=== PATIENT | male | born 1950 | race Hispanic/Latino ===

== ENCOUNTER 2023-02-20 22:23 | Emergency (ER) | payer OTHER ==
--- OUTSIDE RECORDS SUMMARY | 2023-02-20 22:27 | XMS REPORT | Continuity of Care Document ---
:1950 Author Organization [facility] t Address [address] [place] [address] Care Team Providers Name Role Phone Paul Grey MD Primary Care Physician Aquino_B Attending Clinician Unavailable Aquino_B Admitting Clinician Unavailable Payers Payer Name Policy Type Policy Number Effective Date Expiration Date [facility] [place]: [id number] 2018 [place] 00:00:00 [id number] (MEDICARE 00:00:00 SUPPLEMENT) [facility] [id number] 2018 2019 00:00:00 00:00:00 Problems Condition Condition Condition Status Onset Resolution Last Treating Co mments Source Name Details Category Date Date Treatment Clinician Date 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 Diabetes 4-11 Family mellitus Mellitus 00:00: Practi c 00 e Peripheral Peripheral Problem Active 2020-10 [facility] vascular Vascular 0-21 Family disease Disease 00:00: Practic 00 e Congestive Congestive Problem Active [facility] heart Heart 5-10 Family failure Failure 00:00: Practic 00 e 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 Social History Social Habit Start Date Stop Date Quantity Comments Source Gender identity [facility] Sexual orientation [facility] History of Social 2018-08-27 2018-08-[address] function 00:00:00 00:00:00 Hospital Alcohol intake 2017-11-21 2017-11-21 Current [facility] 00:[facility]:00 00:00:00 non-drinker of Hospital alcohol (finding) Tobacco use and 2017-09-12 2017-09-12 Sm[facility]eless [facility] 00:[facility]:00 00:00:00 tobacco non-user Hospital Sex Assigned At [birth year] [facility] 00[facility] Smoking Status Start Date Stop Date Source Never Smoker [facility] Medications Ordered Filled Start Stop Current Ordering Indication Dosage Frequency Signature Comments Components Source Medication Medication Date Date Medication? Clinician (SIG) Name Name amLODIPine Yes 10mg QD Take 10 mg M ethodi (NORVASC) 1-[address] 10 mg 00:00: daily. Hospita tablet 00 l BASAGLAR 2016-10 Yes 25U QD Inject 25 Meth marya KWIKPEN 100 0-[address] unit/mL (3 00:00: under the Ho spita mL) 00 skin l injection nightly. (pen) lisinopril 2016-10 Yes 40mg QD Take 40 mg M ethodi (PRINIVIL,Z 0-[address] ESTRIL) 40 00:00: every Hospit a mg tablet 00 morning. l simvastatin 2016-10 Yes 20mg QD Take 20 mg Methodi (ZOCOR) 20 0-[address] MG tablet 00:00: nightly. Hosp david 00 l metFORMIN Yes 500mg Q.5D Take 500 Met hodi XR 9-[address] (GLUCOPHAGE 00:00: mouth 2 Hos rasheed -XR) 500 mg 00 (two) l 24 hr times a tablet day with meals. amlodipine amlodipine No amlodipine [facility] 10 mg 10 mg 10 mg Family tablet TAKE tablet TAKE tablet Practic 1 TABLET BY 1 TABLET BY TAKE 1 e MOUTH EVERY MOUTH EVERY TABLET BY DAY- NEEDS DAY- NEEDS MOUTH APPT APPT EVERY DAY- NEEDS APPT Basaglar Basaglar No Basaglar Aquilino gilmore KwikPen KwikPen KwikJob Family U-100 U-100 U-100 Practic Insulin 100 Insulin 100 Insulin e unit/mL (3 unit/mL (3 100 mL) mL) unit/mL (3 subcutaneou subcutaneou mL) s INJECT 30 s INJECT 30 subcutaneo UNITS UNITS us INJECT SUBCUTANEOU SUBCUTANEOU 30 UNITS SLY ONCE SLY ONCE SUBCUTANEO DAILY DAILY USLY ONCE DAILY BD BD No BD [facility] Ultra-Fine Ultra-Fine Ultra-Fine Family Short Pen Short Pen Short Pen Practic Needle 31 Needle 31 Needle 31 e gauge x gauge x gauge x 02/23" BID 02/23" BID 02/23" BID use use use Ecotrin Low Ecotrin Low No 1 Q1D Ecotrin [facility] Strength 81 Strength 81 Low F amily mg mg Strength Practic tablet,ente tablet,ente 81 mg e chris coated chris coated tablet,ent Take 1 Take 1 jana tablet tablet coated every day every day Take 1 by oral by oral tablet route. route. every day by oral route. hydrochloro hydrochloro No 1 Q1D hydrochlor [facility] thiazide 25 thiazide 25 othiazide Family mg tablet mg tablet 25 mg Prac tic Take 1 Take 1 tablet e tablet tablet Take 1 every day every day tablet by oral by oral every day route in route in by oral the the route in morning. morning. the morning. lisinopril lisinopril No lisinopril [facility] 40 mg 40 mg 40 mg Family tablet TAKE tablet TAKE tablet Practic 1 TABLET BY 1 TABLET BY TAKE 1 e MOUTH EVERY MOUTH EVERY TABLET BY DAY DAY MOUTH EVERY DAY metformin metformin No metformin [facility] 500 mg 500 mg 500 mg Family tablet TAKE tablet TAKE tablet Practic 1 TABLET BY 1 TABLET BY TAKE 1 e MOUTH TWICE MOUTH TWICE TABLET BY A DAY A DAY MOUTH TWICE A DAY naproxen naproxen No naproxen Aquilino gilmore 500 mg 500 mg 500 mg Family tablet tablet tablet Practic e simvastatin simvastatin No simvastati [facility] 20 mg 20 mg n 20 mg Family tablet TAKE tablet TAKE tablet Practic 1 TABLET BY 1 TABLET BY TAKE 1 e MOUTH EVERY MOUTH EVERY TABLET BY DAY IN THE DAY IN THE MOUTH EVENING EVENING EVERY DAY IN THE EVENING amlodipine amlodipine No amlodipine [facility] 10 mg 10 mg 10 mg Family tablet TAKE tablet TAKE tablet Practic 1 TABLET BY 1 TABLET BY TAKE 1 e MOUTH EVERY MOUTH EVERY TABLET BY DAY- NEEDS DAY- NEEDS MOUTH APPT APPT EVERY DAY- NEEDS APPT Caneloshiraroseanne Lemosaglroseanne No Basaglar Aquilino gilmore KwikPen KwikPen KwikJob Family U-100 U-100 U-100 Practic Insulin 100 Insulin 100 Insulin e unit/mL (3 unit/mL (3 100 mL) mL) unit/mL (3 subcutaneou subcutaneou mL) s INJECT 30 s INJECT 30 subcutaneo UNITS UNITS us INJECT SUBCUTANEOU SUBCUTANEOU 30 UNITS SLY ONCE SLY ONCE SUBCUTANEO DAILY DAILY USLY ONCE DAILY BD BD No BD [facility] Ultra-Fine Ultra-Fine Ultra-Fine Family Short Pen Short Pen Short Pen Practic Needle 31 Needle 31 Needle 31 e gauge x gauge x gauge x 5/16" USE 02/23" USE 02/23" USE DIRECTED DIRECTED DIRECTED Ecotrin Low Ecotrin Low No 1 Q1D Ecotrin [facility] Strength 81 Strength 81 Low F amily mg mg Strength Practic tablet,ente tablet,ente 81 mg e chris coated chris coated tablet,ent Take 1 Take 1 jana tablet tablet coated every day every day Take 1 by oral by oral tablet route. route. every day by oral route. hydrochloro hydrochloro No hydrochlor [facility] thiazide 25 thiazide 25 othiazide Family mg tablet mg tablet 25 mg Prac tic TAKE 1 TAKE 1 tablet e TABLET TABLET TAKE 1 EVERY DAY EVERY DAY TABLET BY ORAL BY ORAL EVERY DAY ROUTE IN ROUTE IN BY ORAL THE THE ROUTE IN MORNING. MORNING. THE MORNING. lisinopril lisinopril No lisinopril [facility] 40 mg 40 mg 40 mg Family tablet TAKE tablet TAKE tablet Practic 1 TABLET BY 1 TABLET BY TAKE 1 e MOUTH EVERY MOUTH EVERY TABLET BY DAY DAY MOUTH EVERY DAY metformin metformin No metformin [facility] 500 mg 500 mg 500 mg Family tablet TAKE tablet TAKE tablet Practic 1 TABLET BY 1 TABLET BY TAKE 1 e MOUTH TWICE MOUTH TWICE TABLET BY A DAY A DAY MOUTH TWICE A DAY naproxen naproxen No naproxen Aquilino deirdre 500 mg 500 mg 500 mg Family tablet tablet tablet Practic e simvastatin simvastatin No simvastati [facility] 20 mg 20 mg n 20 mg Family tablet TAKE tablet TAKE tablet Practic 1 TABLET BY 1 TABLET BY TAKE 1 e MOUTH EVERY MOUTH EVERY TABLET BY DAY IN THE DAY IN THE MOUTH EVENING EVENING EVERY DAY IN THE EVENING amlodipine amlodipine No amlodipine [facility] 10 mg 10 mg 10 mg Family tablet TAKE tablet TAKE tablet Practic 1 TABLET BY 1 TABLET BY TAKE 1 e MOUTH EVERY MOUTH EVERY TABLET BY DAY- NEEDS DAY- NEEDS MOUTH APPT APPT EVERY DAY- NEEDS APPT Basaglar Basaglar No Basaglar Aquilino Diego Family U-100 U-100 U-100 Practic Insulin 100 Insulin 100 Insulin e unit/mL (3 unit/mL (3 100 mL) mL) unit/mL (3 subcutaneou subcutaneou mL) s INJECT 30 s INJECT 30 subcutaneo UNITS UNITS us INJECT SUBCUTANEOU SUBCUTANEOU 30 UNITS SLY ONCE SLY ONCE SUBCUTANEO DAILY DAILY USLY ONCE DAILY BD BD No BD [facility] Ultra-Fine Ultra-Fine Ultra-Fine Family Short Pen Short Pen Short Pen Practic Needle 31 Needle 31 Needle 31 e gauge x gauge x gauge x 5/16" USE 5/16" USE 516" USE DIRECTED DIRECTED DIRECTED Ecotrin Low Ecotrin Low No 1 Q1D Ecotrin [facility] Strength 81 Strength 81 Low F amily mg mg Strength Practic tablet,ente tablet,ente 81 mg e chris coated chris coated tablet,ent Take 1 Take 1 jana tablet tablet coated every day every day Take 1 by oral by oral tablet route. route. every day by oral route. hydrochloro hydrochloro No hydrochlor [facility] thiazide 25 thiazide 25 othiazide Family mg tablet mg tablet 25 mg Prac tic TAKE 1 TAKE 1 tablet e TABLET TABLET TAKE 1 EVERY DAY EVERY DAY TABLET BY ORAL BY ORAL EVERY DAY ROUTE IN ROUTE IN BY ORAL THE THE ROUTE IN MORNING. MORNING. THE MORNING. lisinopril lisinopril No lisinopril [facility] 40 mg 40 mg 40 mg Family tablet TAKE tablet TAKE tablet Practic 1 TABLET BY 1 TABLET BY TAKE 1 e MOUTH EVERY MOUTH EVERY TABLET BY DAY DAY MOUTH EVERY DAY metformin metformin No metformin [facility] 500 mg 500 mg 500 mg Family tablet TAKE tablet TAKE tablet Practic 1 TABLET BY 1 TABLET BY TAKE 1 e MOUTH TWICE MOUTH TWICE TABLET BY A DAY A DAY MOUTH TWICE A DAY naproxen naproxen No naproxen Aquilino gilmore 500 mg 500 mg 500 mg Family tablet tablet tablet Practic e simvastatin simvastatin No simvastati [facility] 20 mg 20 mg n 20 mg Family tablet TAKE tablet TAKE tablet Practic 1 TABLET BY 1 TABLET BY TAKE 1 e MOUTH EVERY MOUTH EVERY TABLET BY DAY IN THE DAY IN THE MOUTH EVENING EVENING EVERY DAY IN THE EVENING Immunizations Ordered Immunization Filled Immunization Date Status Commen ts Source Name Name influenza, influenza, 2022-06-24 Completed [facility] high-dose, high-dose, 14:51:36 Practice quadrivalent quadrivalent influenza, influenza, 2022-06-24 Completed [facility] high-dose, high-dose, 14:51:36 Practice quadrivalent quadrivalent influenza, influenza, 2022-06-24 Completed [facility] high-dose, high-dose, 14:51:36 Practice quadrivalent quadrivalent influenza, influenza, 2021-07-31 Completed [facility] high-dose, high-dose, 13:13:00 Practice quadrivalent quadrivalent influenza, influenza, 2021-07-31 Completed [facility] high-dose, high-dose, 13:13:00 Practice quadrivalent quadrivalent influenza, influenza, 2021-07-31 Completed [facility] high-dose, high-dose, 13:13:00 Practice quadrivalent quadrivalent COVID-19, mRNA, COVID-19, mRNA, 2021-07-09 Completed [facility] LNP-S, PF, 30 LNP-S, PF, 30 00:00:00 Practice mcg/0.3 mL dose mcg/0.3 mL dose (Pfizer-BioNTech) (Pfizer-BioNTech) COVID-19, mRNA, COVID-19, mRNA, 2021-07-09 Completed [facility] LNP-S, PF, 30 LNP-S, PF, 30 00:00:00 Practice mcg/0.3 mL dose mcg/0.3 mL dose (Pfizer-BioNTech) (Pfizer-BioNTech) COVID-19, mRNA, COVID-19, mRNA, 2021-07-09 Completed [facility] LNP-S, PF, 30 LNP-S, PF, 30 00:00:00 Practice mcg/0.3 mL dose mcg/0.3 mL dose (Pfizer-BioNTech) (Pfizer-BioNTech) COVID-19, mRNA, COVID-19, mRNA, 2021-06-18 Completed [facility] LNP-S, PF, 30 LNP-S, PF, 30 00:00:00 Practice mcg/0.3 mL dose mcg/0.3 mL dose (Pfizer-BioNTech) (Pfizer-BioNTech) COVID-19, mRNA, COVID-19, mRNA, 2021-06-18 Completed [facility] LNP-S, PF, 30 LNP-S, PF, 30 00:00:00 Practice mcg/0.3 mL dose mcg/0.3 mL dose (Pfizer-BioNTech) (Pfizer-BioNTech) COVID-19, mRNA, COVID-19, mRNA, 2021-06-18 Completed [facility] LNP-S, PF, 30 LNP-S, PF, 30 00:00:00 Practice mcg/0.3 mL dose mcg/0.3 mL dose (Pfizer-BioNTech) (Pfizer-BioNTech) FLUCELVAX QUAD PF 2017-09-[address] 00:[facility]00 Hospital Vital Signs Vital Name Observation Time Observation Value Comments Source BP Diastolic 2022-12-17 00:00:00 64 mm[Hg] [facility] Height 2022-12-17 00:00:00 67.25 [in_i] [facility] BMI (Body Mass 2022-12-17 00:00:00 35.3 kg/m2 [facility] BP Systolic 2022-12-17 00:00:00 122 mm[Hg] [facility] Body Weight 2022-12-17 00:00:00 227 [lb_av] [facility] BP Diastolic 2022-09-18 00:00:00 83 mm[Hg] [facility] Height 2022-09-18 00:00:00 67.25 [in_i] [facility] BMI (Body Mass 2022-09-18 00:00:00 35.6 kg/m2 [facility] BP Systolic 2022-09-18 00:00:00 147 mm[Hg] [facility] Body Weight 2022-09-18 00:00:00 229 [lb_av] [facility] BP Diastolic 2022-06-24 00:00:00 81 mm[Hg] [facility] Height 2022-06-24 00:00:00 67.25 [in_i] [facility] BMI (Body Mass 2022-06-24 00:00:00 36.3 kg/m2 [facility] BP Systolic 2022-06-24 00:00:00 171 mm[Hg] [facility] Body Weight 2022-06-24 00:00:00 233.8 [lb_av] [facility] BP Diastolic 2022-01-19 00:00:00 89 mm[Hg] [facility] Height 2022-01-19 00:00:00 67.25 [in_i] [facility] BMI (Body Mass 2022-01-19 00:00:00 35.9 kg/m2 [facility] BP Systolic 2022-01-19 00:00:00 158 mm[Hg] [facility] Body Weight 2022-01-19 00:00:00 231 [lb_av] [facility] BP Diastolic 2021-07-31 00:00:00 87 mm[Hg] [facility] Height 2021-07-31 00:00:00 67.25 [in_i] [facility] BMI (Body Mass 2021-07-31 00:00:00 35.4 kg/m2 [facility] BP Systolic 2021-07-31 00:00:00 163 mm[Hg] [facility] Body Weight 2021-07-31 00:00:00 228 [lb_av] [facility] BP Diastolic 2021-04-04 00:00:00 86 mm[Hg] [facility] Height 2021-04-04 00:00:00 67.25 [in_i] [facility] BMI (Body Mass 2021-04-04 00:00:00 35.4 kg/m2 [facility] BP Systolic 2021-04-04 00:00:00 174 mm[Hg] [facility] Body Weight 2021-04-04 00:00:00 228 [lb_av] [facility] BP Diastolic 2020-08-12 00:00:00 83 mm[Hg] [facility] Height 2020-08-12 00:00:00 67.25 [in_i] [facility] BMI (Body Mass 2020-08-12 00:00:00 35.3 kg/m2 [facility] BP Systolic 2020-08-12 00:00:00 157 mm[Hg] [facility] Body Weight 2020-08-12 00:00:00 227.4 [lb_av] [facility] Height 2020-04-03 00:00:00 67.25 [in_i] [facility] BP Diastolic 2019-10-31 00:00:00 88 mm[Hg] [facility] Height 2019-10-31 00:00:00 67.25 [in_i] [facility] BMI (Body Mass 2019-10-31 00:00:00 35.3 kg/m2 [facility] Index) Practice BP Systolic 2019-10-31 00:00:00 151 mm[Hg] [facility] Body Weight 2019-10-31 00:00:00 227 [lb_av] [facility] Procedures Procedure Date / Time Performing Clinician Source Performed X-RAY OF KNEE 3 VIEW 2020-08-12 00:00:00 [facility] Cholecystectomy (Gall 2016-10-11 00:00:00 [facility] Bladder Removal) Practice Plan of Care Planned Activity Planned Date Details Comments Source Future Scheduled Test 2023-02-20 COVID-19 VACCINE (#1) [facility] 22:26:26 [code = COVID-19 VACCINE (#1)] Future Scheduled Test 2023-02-20 COLONOSCOPY SCREENING [facility] 22:26:26 [code = COLONOSCOPY SCREENING] Future Scheduled Test 2023-02-20 SHINGLES VACCINES (1 [facility] 22:26:26 of 2) [code = SHINGLES VACCINES (1 of 2)] Future Scheduled Test 2023-02-20 65+ PNEUMOCOCCAL [facility] 22:26:26 VACCINE (1 - PCV) [code = 65+ PNEUMOCOCCAL VACCINE (1 - PCV)] Future Scheduled Test 2023-02-20 INFLUENZA VACCINE [facility] 22:26:26 [code = INFLUENZA VACCINE] Diagnostic Test 2022-12-17 HbA1c (hemoglobin [facility] Pending 00:00:00 A1c), blood [code = Practice HbA1c (hemoglobin A1c), blood] Diagnostic Test 2022-12-17 BMP, serum or plasma [facility] Family Pending 00:00:00 [code = BMP, serum or Practi ce plasma] Future Appointment 2023-06-22 Kurt Pickering, [address] [facility] 09:30:[address] , [place], [place] [address] Future Appointment 2023-03-18 Kurt Pickering, [address] [facility] 09:45:[address] , [place], [place] [address] [facility] Encounters Start End Encounter Admission Attending Care Care Encounter Source Date/Time Date/Time Type Type Clinicians Facility Department ID 2022-12-17 2022-12-17 Outpatient Aquino_B VFP VFP [id number] [facility] 00:00:00 00:00:00 [id number] Family Practic e 2022-12-17 2022-12-17 Outpatient VFP VFP [id number] [facility] 00:00:00 00:00:00 [id number] Family Practic e 2022-12-17 2022-12-17 Outpatient VFP VFP [id number] [facility] 00:00:00 00:00:00 [id number] Family Practic e 2022-12-17 2022-12-17 Kurt VFP [place] - [id number] [facility] 00:00:00 00:00:00 [facility] nadeen Pickering Medical - Prac tic MD: [address] VM[address] [address] , Ph. 2022-11-25 2022-11-25 Outpatient Aquino_B VFP VFP [id number] - [facility] 00:00:00 00:00:00 [id number] Family Practic e 2022-09-18 2022-09-18 Outpatient Aquino_B VFP VFP [id number] [facility] 00:00:00 00:00:00 [id number] Family Practic e 2022-09-18 2022-09-18 Kurt VFP [place] - [id number] [facility] 00:00:00 00:00:00 [facility] nadeen Pickering Medical - Prac tic MD: [address], [address] [address] , Ph. 2022-09-16 2022-09-16 Outpatient Aquino_B VFP VFP [id number] [facility] 00:00:00 00:00:00 [id number] Family Practic e 2022-09-16 2022-09-16 Outpatient VFP VFP [id number]- 202 [facility] 00:00:00 00:00:00 [id number] Family Practic e 2022-09-16 2022-09-16 Outpatient VFP VFP [id number] 202 [facility] 00:00:00 00:00:00 [id number] Family Practic e 2022-09-16 2022-09-16 Outpatient Aquino_B VFP VFP [id number] [facility] 00:00:00 00:00:00 [id number] Family Practic e 2022-06-24 2022-06-24 Outpatient VFP VFP [id number]- 202 [facility] 00:00:00 00:00:00 [id number] Family Practic e 2022-06-24 2022-06-24 Outpatient VFP VFP [id number] 202 [facility] 00:00:00 00:00:00 [id number] Family Practic e 2022-06-24 2022-06-24 Kurt VFP [place] - [id number] [facility] 00:00:00 00:00:00 [facility] nadeen Pickering, Medical - Prac tic MD: [address] [address] , Ph. 2022-05-26 2022-05-26 Outpatient Aquino_B VFP VFP [id number] [facility] 00:00:00 00:00:00 [id number] Family Practic e 2022-04-06 2022-04-06 Outpatient Aquino_B VFP VFP [id number] [facility] 00:00:00 00:00:00 [id number] Family Practic e 2022-04-02 2022-04-02 Outpatient Aquino_B VFP VFP [id number] -202 [facility] 10:55:00 10:55:00 [id number] Family Practic e 2022-04-02 2022-04-02 Outpatient Aquino_B VFP VFP [id number] -202 [facility] 10:55:00 10:55:00 [id number] Family Practic e 2022-03-15 2022-03-15 Outpatient Aquino_B VFP VFP [id number] -202 [facility] 12:50:00 12:50:00 [id number] Family Practic e 2022-01-22 2022-01-22 Outpatient Aquino_B VFP VFP [id number] -202 [facility] 10:35:00 10:35:00 [id number] Family Practic e 2022-01-22 2022-01-22 Outpatient VFP VFP [id number] 202 [facility] 10:35:00 10:35:00 [id number] Family Practic e 2022-01-19 2022-01-19 Outpatient Aquino_B VFP VFP [id number] [facility] 05:10:00 05:10:00 [id number] Family Practic e 2022-01-19 2022-01-19 Kurt VFP [place] - [id number] [facility] 00:00:00 00:00:00 [facility] nadeen Pickering, Medical - Prac tic MD: [address] _QUANGU_[address] e [facility] [address] [address] , Ph. 2022-01-16 2022-01-16 Outpatient Aquino_B VFP VFP [id number] -202 [facility] 01:51:00 01:51:00 [id number] Family Practic e 2021-09-26 2021-09-26 Outpatient Aquino_B VFP VFP [id number] -202 [facility] 09:06:00 09:06:00 Family Practic e 2021-09-26 2021-09-26 Outpatient Aquino_B VFP VFP [id number] -202 [facility] 09:06:00 09:06:00 [id number] Family Practic e 2021-09-26 2021-09-26 Outpatient Aquino_B VFP VFP [id number] -202 [facility] 09:06:00 09:06:00 [id number] Family Practic e 2021-09-04 2021-09-04 Outpatient Aquino_B VFP VFP [id number] -202 [facility] 01:36:00 01:36:00 [id number] Family Practic e 2021-08-09 2021-08-09 Outpatient Aquino_B VFP VFP [id number] -202 [facility] 06:19:00 06:19:00 [id number] Family Practic e 2021-08-01 2021-08-01 Outpatient Aquino_B VFP VFP [id number] -202 [facility] 02:35:00 02:35:00 [id number] Family Practic e 2021-07-31 2021-07-31 Outpatient Aquino_B VFP VFP [id number] -202 [facility] 03:14:00 03:14:00 [id number] Family Practic e 2021-07-31 2021-07-31 Kurt VFP [place] - [id number] [facility] 00:00:00 00:00:00 [facility] nadeen Pickering, Medical - Prac tic MD: [address], [place] [address] , Ph. 2021-07-15 2021-07-15 Outpatient Aquino_B VFP VFP [id number] -202 [facility] 05:39:00 05:39:00 [id number] Family Practic e 2021-05-09 2021-05-09 Outpatient Aquino_B VFP VFP [id number] -202 [facility] 04:35:00 04:35:00 [id number] Family Practic e 2021-05-09 2021-05-09 Outpatient Aquino_B VFP VFP [id number] -202 [facility] 04:35:00 04:35:00 [id number] Family Practic e 2021-04-26 2021-04-26 Outpatient VFP VFP [id number]- 202 [facility] 10:50:00 10:50:00 [id number] Family Practic e 2021-04-26 2021-04-26 Outpatient VFP VFP [id number]- 202 [facility] 10:50:00 10:50:00 [id number] Family Practic e 2021-04-26 2021-04-26 Outpatient Aquino_B VFP VFP [id number] -202 [facility] 10:50:00 10:50:00 [id number] Family Practic e 2021-04-07 2021-04-07 Outpatient Aquino_B VFP VFP [id number] -202 [facility] 10:24:00 10:24:00 [id number] Family Practic e 2021-04-04 2021-04-04 Outpatient Aquino_B VFP VFP [id number] -202 [facility] 12:43:00 12:43:00 [id number] Family Practic e 2021-04-04 2021-04-04 Outpatient Aquino_B VFP VFP [id number] -202 [facility] 12:43:00 12:43:00 [id number] Family Practic e 2021-04-04 2021-04-04 Kurt VFP [place] - [id number] [facility] 00:00:00 00:00:00 [facility] nadeen Pickering Medical - Prac brant BEASLEY: Demetri SAnnelise LOPEZ_QUANGJenniferBrandan Richards 3, [place] [address] , Ph. 2021-03-13 2021-03-13 Outpatient Aquino_B VFP VFP [id number] [facility] 02:18:00 02:18:00 [id number] Family Practic e 2021-03-13 2021-03-13 Outpatient Aquino_B VFP VFP [id number] [facility] 02:18:00 02:18:00 [id number] Family Practic e 2021-03-13 2021-03-13 Outpatient Aquino_B VFP VFP [id number] [facility] 02:18:00 02:18:00 [id number] Family Practic e 2021-03-04 2021-03-04 Outpatient Aquino_B VFP VFP [id number] -202 [facility] 03:13:00 03:13:00 [id number] Family Practic e 2021-03-04 2021-03-04 Outpatient VFP VFP [id number] 202 [facility] 03:13:00 03:13:00 [id number] Family Practic e 2021-03-03 2021-03-03 Outpatient Aquino_B VFP VFP [id number] -202 [facility] 10:02:00 10:02:00 [id number] Family Practic e 2020-11-08 2020-11-08 Outpatient Aquino_B VFP VFP [id number] -202 [facility] 06:25:00 06:25:00 [id number] Family Practic e 2020-08-19 2020-08-19 Outpatient Aquino_B VFP VFP [id number] [facility] 09:19:00 09:19:00 [id number] Family Practic e 2020-08-12 2020-08-12 Outpatient Aquino_B VFP VFP [id number] [facility] 10:58:00 10:58:00 [id number] Family Practic e 2020-08-12 2020-08-12 Kurt VFP [place] - [id number] [place] 00:00:00 00:00:00 [facility] nadeen [facility] - Prac tic MD: [address], [place] [address] , Ph. 2020-08-09 2020-08-09 Outpatient Aquino_B VFP VFP [id number] [facility] 12:15:00 12:15:00 [id number] Family Practic e 2020-08-09 2020-08-09 Outpatient VFP VFP [id number] 202 [facility] 12:15:00 12:15:00 [id number] Family Practic e 2020-08-09 2020-08-09 Outpatient VFP VFP [id number] 202 [facility] 12:15:00 12:15:00 [id number] Family Practic e 2020-05-15 2020-05-15 Outpatient Aquino_B VFP VFP [id number] -202 [place] 12:36:00 12:36:00 [id number] Family Practic e 2020-04-05 2020-04-05 Outpatient Aquino_B VFP VFP [id number] -202 [facility] 02:09:00 02:09:00 [id number] Family Practic e 2020-04-03 2020-04-03 Outpatient Aquino_B VFP VFP [id number] -202 [facility] 05:35:00 05:35:00 [id number] Family Practic e 2020-04-03 2020-04-03 Carlos VFP [place] - [id number] [place] 00:00:00 00:00:00 [facility], Medical - Pract karolina MD: [address], [place] [address] , Ph. 2019-12-18 2019-12-18 Outpatient Aquino_B VFP VFP [id number] -202 [facility] 10:16:00 10:16:00 [id number] Family Practic e 2019-11-28 2019-11-28 Outpatient Aquino_B VFP VFP [id number] -202 [place] 10:46:00 10:46:00 [id number] Family Practic e 2019-11-03 2019-11-03 Outpatient Aquino_B VFP VFP [id number] -202 [facility] 04:50:00 04:50:00 [id number] Family Practic e 2019-10-31 2019-10-31 Outpatient Aquino_B VFP VFP [id number] -202 [facility] 11:24:00 11:24:00 [id number] Family Practic e 2019-10-31 2019-10-31 Kurt VFP [place] - [id number] V [place] 00:00:00 00:00:00 [facility] nadeen Pickering, Medical - Prac tic MD: [address], [place] [facility] [place] [address] , Ph. 2019-10-18 2019-10-18 Outpatient Aquino_B VFP VFP [id number] -202 [facility] 03:53:00 03:53:00 [id number] Family Practic e Results This patient has no known results.
--- NOTE | 2023-02-20 22:43 | EDPHYS ---
Physician Documentation [facility] Name: Chris More Jr Age: 72 yrs Sex: Male : 1950 Arrival Date: 02/20/2023 Time: 22:23 Bed 6 Private MD: ED Physician Jennifer Castellanos HPI: 02/20 22:35 This 72 yrs old Male presents to ER via Unassigned with complaints of Finger sd2 Injury, H/O TYPE II DM, PATIENT C/O INFECTION. 22:35 72 yo M presents with CC of R index finger injury after smashing it in his car door sd2 approximately 1 hour [employer]. He reports mild throbbing pain but came in due to concern for infection as he is diabetic. He is able to fully use and move the finger and applied a Band-Aid to the area [employer] and bleeding is controlled. . Historical: - Allergies: 22:44 No Known Allergies; pf1 - Home Meds: 22:44 Lisinopril Oral [Active]; Metformin Oral [Active]; Simvastatin Oral [Active]; Insulin pf1 Glargine Sub-Q [Active]; amlodipine oral [Active]; - PMHx: 22:44 Hypertensive disorder; Hypercholesterolemia; Diabetes mellitus; pf1 - Immunization history:: Adult Immunizations up to date, Client reports receiving the 2nd dose of the Covid vaccine, Last tetanus immunization: < 5 years ago Pneumococcal vaccine is up to date, Flu vaccine is up to date. - Social history:: Smoking status: Patient denies any tobacco usage or history of. Patient/guardian denies using alcohol, street drugs. ROS: 22:35 Constitutional: Negative for fever, chills, and weight loss, MS/Extremity: Positive for sd2 injury and negative for deformity, Skin: Positive for injury and discoloration, negative for rash Neuro: Negative for headache, numbness and tingling. Exam: 22:35 Constitutional: This is a well developed, well nourished patient who is awake, alert, sd2 and in no acute distress. Head/Face: Normocephalic, atraumatic. Skin: Warm, dry with normal turgor. Normal color with no rashes. R index finger with very superficial laceration to finger just inferior to the nailbed vertically. Nailbed intact, bleeding controlled. No gaping of wound edges. Laceration approximately 3 cm. Also underlying ecchymosis and possible small hematoma noted to inferior finger pad. FROM intact of the finger without pain. No significant appreciable swelling. MS/ Extremity: Pulses equal, no cyanosis. Neurovascular intact. Full, normal range of motion. Ambulatory without difficulty. Psych: Awake, alert, with orientation to person, place and time. Behavior, mood, and affect are within normal limits. Vital Signs: 22:34 BP 166 / 78; Pulse 73; Resp 18; Temp 98.3; Pulse Ox 97% on R/A; Weight 102.06 kg; pf1 Height 5 ft. 8 in. ; Pain 3/10; 22:57 BP 162 / 79; Pulse 70; Resp 16; Pulse Ox 98% on R/A; Pain 3/10; pf1 22:34 Body Mass Index 34.21 (102.06 kg, 172.72 cm) pf1 22:34 Pain Scale: Adult pf1 22:57 Pain Scale: Adult pf1 Laceration: 22:35 Wound Repair of 3cm ( 1.2in ) subcutaneous laceration to right hand. Linear shaped.. sd2 Minimal contamination.. Distal neuro/vascular/tendon intact. Wound prep: Simple cleansing by nurse. Skin closed with 1-0 Steri-strips using simple sutures and sterile technique. Dressed with 4x4's, Kerlix. Patient tolerated well. MDM: 22:32 Patient medically screened. sd2 22:35 Differential diagnosis: fracture, contusion, laceration, hematoma, ecchymosis among sd2 others. Data reviewed: vital signs, nurses notes. I considered the following discharge prescriptions or medication management in the emergency department Antibiotics: At this time antibiotics are not recommended. Test considered but Not performed: X-ray: Pt in agreement to defer XR at this time of the finger.. Care significantly affected by the following chronic conditions: Diabetes. Counseling: I had a detailed discussion with the patient and/or guardian regarding: the historical points, exam findings, and any diagnostic results supporting the discharge/admit diagnosis, the need for outpatient follow up, to return to the emergency department if symptoms worsen or persist or if there are any questions or concerns that arise at home. Special discussion: I discussed in detail with the patient the higher chance of wound infection based on his presenting history. I discussed with the patient/guardian that the patient's current presentation does not indicate dosing of antibiotics. They should follow-up with their primary care provider and return if the symptoms persist or progress. ED course: Clinical presentation consistent with superficial laceration and crush injury of finger. Pt in agreement to defer XR. Doubt FB or fracture at this time based upon clinical exam. laceration cleansed and wound care performed and pt instructed to continue at home with outpatient follow up with PCP this upcoming week. He was also advised of strict return precautions and signs of wound infection and verbalizes understanding. . Administered Medications: No medications were administered Disposition Summary: 02/20/23 22:43 Discharge Ordered Location: Home sd2 Problem: new sd2 Symptoms: have improved sd2 Condition: Stable sd2 Diagnosis - Laceration without foreign body of finger without damage to nail sd2 - Contusion of finger without damage to nail sd2 Followup: sd2 - With: Private Physician - When: 2 - 3 days - Reason: Wound Recheck, Recheck today's complaints, Continuance of care, Re-evaluation by your physician Discharge Instructions: - Discharge Summary Sheet sd2 - Wound Care, Adult sd2 Forms: - Medication Reconciliation Form sd2 - Thank You Letter sd2 - Antibiotic Education sd2 - Prescription Opioid Use sd2 Signatures: Jennifer Castellanos MD MD sd2 Maureen crain RN RN pf1
--- NOTE | 2023-02-20 23:00 | ER ---
Nurse's Notes [facility] Name: Chris More Jr Age: 72 yrs Sex: Male : 1950 Arrival Date: 02/20/2023 Time: 22:23 Bed 6 Private MD: Diagnosis: Laceration without foreign body of finger without damage to nail;Contusion of finger without damage to nail Presentation: 02/20 22:34 Chief complaint: Patient states: right hand 2nd digit pain of 3,onset 1 hour [employer]. pf1 Patient stated slammed finger in the car door. Coronavirus screen: Vaccine status: Patient reports receiving the 2nd dose of the covid vaccine. [facility] Client denies travel out of the [place] in the last 14 days. At this time, the client does not indicate any symptoms associated with coronavirus-19. Ebola Screen: Patient negative for fever greater than or equal to 101.5 degrees Fahrenheit, and additional compatible Ebola Virus Disease symptoms. Initial Sepsis Screen: Does the patient meet any 2 criteria? No. Patient's initial sepsis screen is negative. Does the patient have a suspected source of infection? No. Patient's initial sepsis screen is negative. Risk Assessment: Do you want to hurt yourself or someone else? Patient reports no desire to harm self or others. Onset of symptoms was February 20, 2023. 22:34 Method Of Arrival: Ambulatory pf1 22:34 Acuity: JOSE 4 pf1 Triage Assessment: 22:58 Injury Description: Crush injury Laceration sustained to right hand 2nd digit. pf1 Historical: - Allergies: 22:44 No Known Allergies; pf1 - Home Meds: 22:44 Lisinopril Oral [Active]; Metformin Oral [Active]; Simvastatin Oral [Active]; Insulin pf1 Glargine Sub-Q [Active]; amlodipine oral [Active]; - PMHx: 22:44 Hypertensive disorder; Hypercholesterolemia; Diabetes mellitus; pf1 - Immunization history:: Adult Immunizations up to date, Client reports receiving the 2nd dose of the Covid vaccine, Last tetanus immunization: < 5 years ago Pneumococcal vaccine is up to date, Flu vaccine is up to date. - Social history:: Smoking status: Patient denies any tobacco usage or history of. Patient/guardian denies using alcohol, street drugs. Screenin:55 [facility] ED Fall Risk Assessment (Adult) History of falling in the last 3 months, pf1 including since admission No falls in past 3 months (0 pts) Confusion or Disorientation No (0 pts) Intoxicated or Sedated No (0 pts) Impaired Gait No (0 pts) Mobility Assist Device Used No (0 pt) Altered Elimination No (0 pt) Score/Fall Risk Level 0 - 2 = Low Risk Oriented to surroundings, Maintained a safe environment, Educated pt \T\ family on fall prevention, incl call for assistance when getting out of bed, Assessed \T\ reinforced patient's understanding of fall precautions, Provided non-skid footwear, Hourly rounding (assess needs \T\ fall precautionary measures) done, Used ambulatory aids as needed (educated on \T\ assisted with), Used gait belt as appropriate. Abuse screen: Denies threats or abuse. Nutritional screening: No deficits noted. Tuberculosis screening: No symptoms or risk factors identified. Assessment: 22:48 General: Appears in no apparent distress. comfortable, well groomed, well developed, pf1 Behavior is calm, cooperative, appropriate for age, quiet. Pain: Complains of pain in right hand 2nd digit Pain currently is 3 out of 10 on a pain scale. Neuro: No deficits noted. Level of Consciousness is awake, alert, obeys commands, Oriented to person, place, time, situation. Cardiovascular: No deficits noted. Capillary refill < 3 seconds Patient's skin is warm and dry. Respiratory: No deficits noted. Airway is patent Trachea midline Respiratory effort is even, unlabored, Respiratory pattern is regular, symmetrical. GI: No deficits noted. No signs and/or symptoms were reported involving the gastrointestinal system. : No deficits noted. No signs and/or symptoms were reported regarding the genitourinary system. EENT: No deficits noted. No signs and/or symptoms were reported regarding the EENT system. Derm: Wound noted superficial laceration to right hand 2nd digit proximal to fingernail. Musculoskeletal: Circulation, motion, and sensation intact. Capillary refill < 3 seconds, Swelling present in right hand 2nd digit. Vital Signs: 22:34 BP 166 / 78; Pulse 73; Resp 18; Temp 98.3; Pulse Ox 97% on R/A; Weight 102.06 kg; pf1 Height 5 ft. 8 in. ; Pain 3/10; 22:57 BP 162 / 79; Pulse 70; Resp 16; Pulse Ox 98% on R/A; Pain 3/10; pf1 22:34 Body Mass Index 34.21 (102.06 kg, 172.72 cm) pf1 22:34 Pain Scale: Adult pf1 22:57 Pain Scale: Adult pf1 ED Course: 22:26 Patient arrived in ED. [id number] 22:32 Jennifer Castellanos MD is Attending Physician. sd2 22:35 Patient has correct armband on for positive identification. Bed in low position. Call pf1 light in reach. 22:35 Arm band placed on. pf1 22:44 Triage completed. pf1 22:55 No provider procedures requiring assistance completed. Patient did not have IV access pf1 during this emergency room visit. 22:56 Wound care: to. vc1 22:56 Wound care: was cleaned with Hibiclens, dressed with steri strips, Patient tolerated pf1 well. Administered Medications: No medications were administered Medication: 22:55 VIS not applicable for this client. pf1 Outcome: 22:43 Discharge ordered by . sd2 22:58 Discharged to home ambulatory, with family. pf1 22:58 Condition: improved 22:58 Discharge instructions given to patient, Instructed on discharge instructions, follow up and referral plans. Demonstrated understanding of instructions, follow-up care. 22:59 Patient left the ED. pf1 Signatures: Taylor Hernández [id number] Emilia Turner RN RN vc1 Jennifer Castellanos MD MD sd2 Maureen crain RN RN pf1
[2023-02-20 23:16] VITALS: TEMP 98.3
[2023-02-20 23:18] VITALS: BP 162/79; O2SAT 98
== END 2023-02-20 22:59 | disposition home or self-care (01) ==
LOC: ER 22:23
PROC: 0HQFXZZ Repair Right Hand Skin, External Approach (ICD-10-PCS; principal; 2023-02-20)
DX: S61.210A Laceration without foreign body of right index finger without damage to nail, initial encounter (principal); S60.021A Contusion of right index finger without damage to nail, initial encounter
CPT/HCPCS: 99283